=== PATIENT | male | born 1945 | race Caucasian/White ===

== ENCOUNTER → 2021-07-23 12:30 | Outpatient (CLI) | payer OTHER, SELFPAY | PROVIDERS: PCP Internal Medicine; Referring Provider Internal Medicine; Visit Provider Internal Medicine | DX: E21.3 Hyperparathyroidism, unspecified (principal); M85.852 Other specified disorders of bone density and structure, left thigh; R29.890 Loss of height; N28.9 Disorder of kidney and ureter, unspecified; Z87.891 Personal history of nicotine dependence | CPT/HCPCS: 77080 ==